=== PATIENT | female | born 1990 | race Caucasian/White ===

== ENCOUNTER 2020-10-16 12:57 | Emergency (ER) | payer OTHER ==
[2020-10-16] MEDS ORDERED: NAPROSYN500 MG PO (15:04)
[2020-10-16] MEDS ORDERED: CYCLOBENZAPRINE10 MG PO (15:04)
== END 2020-10-16 15:13 | disposition home or self-care (01) ==
LOC: ER1 12:57
DX: S39.012A Strain of muscle, fascia and tendon of lower back, initial encounter (principal); F17.210 Nicotine dependence, cigarettes, uncomplicated; Z88.1 Allergy status to other antibiotic agents; W01.0XXA Fall on same level from slipping, tripping and stumbling without subsequent striking against object, initial encounter; Y92.009 Unspecified place in unspecified non-institutional (private) residence as the place of occurrence of the external cause
CPT/HCPCS: 72100; 72220; 96372; 99283; J1885